=== PATIENT | male | born 1950 | race Caucasian/White ===

== ENCOUNTER 2017-08-06 21:11 | Emergency (ER) | payer MEDICARE ==
[~2017-08-06] VITALS: Ht 180.3 cm; Wt 52.3 kg
[2017-08-06] MEDS ORDERED: HYDROcodone/acetaminophen 10/325mg tab PO ONE (21:50)
[2017-08-06] MEDS ORDERED: HYDR-565 PO (22:17)
[2017-08-06] MEDS ORDERED: metroNIDAZOLE-Flagyl 500mg/NS 100 ML IV STA (22:21)
[2017-08-06 22:43] VITALS: BP 138/90
== END 2017-08-06 22:45 | disposition home or self-care (01) ==
LOC: ER 21:12
DX: S50.11XA Contusion of right forearm, initial encounter (principal); E78.00 Pure hypercholesterolemia, unspecified; W16.112A Fall into natural body of water striking water surface causing other injury, initial encounter; Y93.89 Activity, other specified; Y92.89 Other specified places as the place of occurrence of the external cause; Y99.8 Other external cause status
CPT/HCPCS: 73090; 99284; J3490